=== PATIENT | female | born 2000 | race Caucasian/White ===

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

== ENCOUNTER 2020-04-16 19:49 | Emergency (ER) | payer SELFPAY ==
[~2020-04-16] VITALS: Ht 172.7 cm; Wt 59.0 kg
[2020-04-16 20:07] VITALS: BP 127/81
== END 2020-04-16 22:30 | disposition home or self-care (01) ==
LOC: ED 19:49
DX: M25.421 Effusion, right elbow (principal); Z79.899 Other long term (current) drug therapy

== ENCOUNTER → 2020-06-02 | Outpatient (CLI) | payer BC | END | disposition home or self-care (01) | LOC: COVID19 15:08 | PROVIDERS: ATTEND Pediatrics | DX: Z20.828 Contact with and (suspected) exposure to other viral communicable diseases (principal) ==

== ENCOUNTER → 2020-06-13 | Outpatient (CLI) | payer BC | END | disposition home or self-care (01) | LOC: COVID19 13:01 | PROVIDERS: ATTEND Pediatrics | DX: Z20.828 Contact with and (suspected) exposure to other viral communicable diseases (principal) ==

== ENCOUNTER → 2020-07-26 | Outpatient (CLI) | payer BC | END | disposition home or self-care (01) | LOC: COVID19 13:23 | PROVIDERS: ATTEND Pediatrics | DX: Z20.822 Contact with and (suspected) exposure to COVID-19 (principal) ==

== ENCOUNTER 2022-05-31 17:50 | Emergency (ER) | payer SELFPAY ==
[~2022-05-31] VITALS: Wt 56.7 kg
[2022-05-31 17:58] VITALS: BP 116/66
== END 2022-05-31 19:42 | disposition home or self-care (01) ==
LOC: ED 17:50
DX: S61.011A Laceration without foreign body of right thumb without damage to nail, initial encounter (principal); Z79.899 Other long term (current) drug therapy; W26.0XXA Contact with knife, initial encounter; Y93.89 Activity, other specified; Y92.89 Other specified places as the place of occurrence of the external cause; Y99.9 Unspecified external cause status